=== PATIENT | male | born 1985 | race Caucasian/White ===

== ENCOUNTER → 2023-04-14 | Outpatient (CLI) | payer OTHER | LOC: PET 09:30 | PROVIDERS: ATTEND Internal Medicine Critical Care Medicine | DX: R91.1 Solitary pulmonary nodule (principal) | CPT/HCPCS: 78815; A9552 ==

== ENCOUNTER 2023-10-09 08:22 | Outpatient (CLI) | payer OTHER | END 2023-10-09 08:23 | disposition home or self-care (01) | LOC: CT 08:22 | PROVIDERS: ATTEND Internal Medicine Critical Care Medicine | DX: R91.1 Solitary pulmonary nodule (principal) | CPT/HCPCS: 71250 ==